=== PATIENT | male | born 1950 | race Caucasian/White ===

== ENCOUNTER 2016-07-22 08:33 | Inpatient (IN) | payer OTHER ==
[2016-07-20 18:26] LABS: BASOPHILS 0.1 %; BASOPHILS ABSOLUTE 0.01 10/3/uL (0.0-0.16); EOSINOPHILS 0.4 %; EOSINOPHILS ABSOLUTE 0.03 10/3/uL (0.0-0.53); HEMATOCRIT 34.4 % (40.0-51.0); HEMOGLOBIN 11.3 g/dL (13.6-17.8); IMMATURE GRANULOCYTES 0.3 %; IMMATURE GRANULOCYTES ABSOLUTE 0.02 10/3/uL (0.0-0.11); LYMPHOCYTES 10.5 %; MANUAL DIFF NO %; MEAN CORPUS HGB CONC 32.8 g/dL (32.0-36.0); MEAN CORPUSCULAR HEMOGLOB 30.2 pg (26.0-34.0); MEAN PLATELET VOLUME 8.8 fL (9.2-13.0); MONOCYTES 11.4 %; MONOCYTES ABSOLUTE 0.87 10/3/uL (0.21-1.20); NEUTROPHILS 77.3 %; NEUTROPHILS ABSOLUTE 5.92 10/3/uL (2.02-8.40); PLATELET COUNT 436 10/3/uL (150-400); RED CELL COUNT 3.74 10/6/uL (4.7-6.1); WHITE BLOOD CELLS 7.7 10/3/uL (4.5-10.5)
[2016-07-20 18:35] LABS: BUN (BLOOD UREA NITROGEN) 15 MG/DL (6-23); CALCIUM, SERUM 9.5 MG/DL (8.5-10.4); CHLORIDE, SERUM 100 MMOL/L (96-112); CO2 (CARBON DIOXIDE) 29 MMOL/L (24-34); CREATININE 0.69 MG/DL (0.70-1.30); GFR AFRICAN AMERICAN 113 ML/MIN (>=60); GFR NON AFRICAN AMERICAN 98 ML/MIN (>=60); GLUCOSE, SERUM 100 MG/DL (60-99); POTASSIUM, SERUM 3.3 MMOL/L (3.5-5.3); SODIUM, SERUM 139 MMOL/L (135-148)
--- NOTE | ~2016-07-22 | HP ---
History And Physical [address] [place]. [address] NAME: TONNY SAGASTUME : 46 STATUS : ADM Zev PAT#: [id number] AGE: 66 ADM/REG DATE : 07/22/16 MR#: [id number] REPORT SERV DATE: 07/23/16 DICTATED BY: CHRISTIANNE AGUILAR II DATE: 07/22/16 REPORT STATUS : Draft TRANSCRIBED BY: MODL DATE: 07/22/16 DATE OF ADMISSION: 07/22/2016 PRIMARY ONCOLOGIST: Quan Ariza M.D. ENT: Marcos Garza MD CHIEF COMPLAINT: Dysphagia, weight loss with hypopharyngeal squamous cell carcinoma. 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 Garza. Given the patient has been having more difficulty with weight loss, dysphagia and aspiration, Dr. Garza elected to admit for observation and supportive care postoperatively. Currently, the patient has some pain in his throat postoperatively, but denies any other significant symptoms such as shortness of breath, chest pain, nausea, vomiting, diarrhea. Denies any fevers or chills. He notes over the last week or two, his dysphagia progressing into difficulty with tolerating liquids due to occasional aspiration and choking. He notes he feels like he has a good appetite and wants to try to eat. REVIEW OF SYSTEMS: 10-point review of systems otherwise negative except for HPI. PAST MEDICAL HISTORY: 1. 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 2. Dysphagia and possible aspiration. 3. Malnutrition secondary to above. 4. Hypertension. 5. Surgical history of prior biopsies. 6. Appendectomy. FAMILY HISTORY: Denies any history of prior malignancy. SOCIAL HISTORY: The patient lives alone by himself and previously worked as an HVAC contractor. He previously smoked about a half pack a day, but recently quit. He has a history of heavy alcohol use, but denies any current alcohol or drug use. ALLERGIES: SULFA. HOME MEDICATIONS: Trazodone, Flomax, [place], baclofen, Ziac. PHYSICAL EXAMINATION: VITAL SIGNS: Respirations 18, blood pressure 146/85, temperature 98.6, heart rate 79, O2 saturation 98% on room air. GENERAL: The patient is alert and oriented x3, in no acute distress. History And Physical [address] [address] NAME: TONNY SAGASTUME : 46 STATUS : ADM Zev PAT#: [id number] AGE: 66 ADM/REG DATE : 07/22/16 MR#: [id number] REPORT SERV DATE: 07/23/16 DICTATED BY: CHRISTIANNE AGUILAR II DATE: 07/22/16 REPORT STATUS : Draft TRANSCRIBED BY: MESERET DATE: 07/22/16 NECK: Supple. Nontender. No lymphadenopathy or thyromegaly. HEENT: Moist mucous membranes. Foul necrotic odor to breath. Pupils equal, round, reactive to light. Conjunctivae clear. RESPIRATORY: Lungs clear to auscultation bilaterally. No wheezes, rhonchi, or rales. Nonlabored breathing. CARDIOVASCULAR: Regular rate and rhythm. No murmurs, rubs, or gallops. ABDOMEN: Soft, nontender, nondistended. Normoactive bowel sounds. EXTREMITIES: No cyanosis, clubbing, or edema. SKIN: No lesions, rashes, or wounds. NEURO: No focal deficits. LABORATORY DATA: Pending. ASSESSMENT AND PLAN: The patient is a 66-year-old male with, 1. Stage IV hypopharyngeal squamous cell carcinoma with previous good response to chemo and radiation, now with recent biopsy. We will defer to Oncology and ENT. 2. Dysphagia and concern for aspiration secondary to above. We will have nursing do bedside swallow and if passes well, we will try a full liquid diet before advancing. 3. Malnutrition. Per above and encourage p.o. afterwards. 4. Hypertension. Home medications. 5. The patient is full code. PINO/MESERET Christianne Aguilar II, MD / [id number] CC: MD Sharon Garcia M.D.
--- NOTE | ~2016-07-22 | DS ---
Discharge Summary [address] [place]. [address] NAME: TONNY SAGASTUME : 46 STATUS : DIS IN PAT#: [id number] AGE: 66 ADM/REG DATE : 07/22/16 MR#: [id number] REPORT SERV DATE: 07/24/16 DICTATED BY: CHRISTIANNE AGUILAR II DATE: 07/24/16 REPORT STATUS : Draft TRANSCRIBED BY: MESERET DATE: 07/24/16 ADMISSION DATE: 07/22/2016 DISCHARGE DATE: 07/24/2016 DISCHARGE DIAGNOSES: 1. Stage IV hypopharyngeal squamous cell carcinoma. 2. Dysphagia and aspiration secondary to above. 3. Malnutrition. 4. Hypertension. CONSULTS: Dr. Marcos Garza with ENT. PROCEDURES: Status post biopsy of hypopharyngeal lesion. BRIEF HISTORY OF PRESENT ILLNESS: The patient is a 66-year-old male with the above history who presented to [facility] due to elective biopsy and admitted due to concern for aspiration and malnutrition for concern for consideration of PEG. For detailed history and physical examination, please see my note from 07/22/2016. HOSPITAL COURSE: After admission, the patient was clearly aspirating and the PEG tube was placed through IR. Nutrition was consulted and the patient was arranged with PEG tube feeds. His initial biopsy results have come back negative though final path pending. Overall, the patient is stable post PEG tube placement and was discharged in stable condition. DISCHARGE MEDICATIONS: 1. Hytrin 1 mg per PEG daily. 2. Bisoprolol and hydrochlorothiazide 1 tab p.o. daily. 3. Hycet 7.5/325 mg per 15 mL solution 15 mL per PEG q.6 hours p.r.n. 4. Baclofen 10 mg per PEG t.i.d. 5. Trazodone 50 mg per PEG q.h.s. DISCHARGE INSTRUCTIONS: The patient will follow up with Dr. Garza and Oncology as scheduled. PINO/MESERET Christianne Aguilar II, MD / [id number] CC: Marcos Garza MD Discharge Summary [address] [address] NAME: TONNY SAGASTUME : 46 STATUS : DIS IN PAT#: [id number] AGE: 66 ADM/REG DATE : 07/22/16 MR#: [id number] REPORT SERV DATE: 07/24/16 DICTATED BY: CHRISTIANNE AGUILAR II DATE: 07/24/16 REPORT STATUS : Draft TRANSCRIBED BY: MODL DATE: 07/24/16 Sharon Kumar M.D.
--- NOTE | ~2016-07-22 | OP ---
Record Of Operation [facility] [address] [place]. [address] NAME: TONNY SAGASTUME : 46 STATUS : ADM IN PAT#: [id number] AGE: 66 ADM/REG DATE : 07/22/16 MR#: [id number] REPORT SERV DATE: 07/22/16 DICTATED BY: GAMAL RODRIGUEZ DATE: 07/22/16 REPORT STATUS : Draft TRANSCRIBED BY: MESERET DATE: 07/22/16 DATE OF PROCEDURE: 07/22/2016 SERVICE: Otolaryngology PREOPERATIVE DIAGNOSIS: Right hypopharyngeal squamous cell carcinoma. POSTOPERATIVE DIAGNOSIS: Right hypopharyngeal squamous cell carcinoma. PROCEDURE: Microsuspension laryngoscopy with biopsy. ANESTHESIA: General endotracheal anesthesia. ESTIMATED BLOOD LOSS: Minimal. COMPLICATIONS: None. SPECIMENS: Deep hypopharyngeal biopsies on the right side. 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 Postoperative PET showed increase in size of the necrotic area and also FDG activity in the area of the primary site. All the positive neck sites had resolved. The patient was struggling with pain and difficulty swallowing on physical exam in the office with a flexible scope. He had large areas of necrosis in the piriform sinus concerning for persistent disease. I recommended today surgery as a way to further evaluate that. STATEMENT OF OPERATION: The patient was brought to the operating room in supine position and transferred over to the operating room table. All pressure points were padded and general endotracheal anesthesia was established. The patient's neck was placed in slight extension with a shoulder roll. A tooth guard was placed in the upper teeth. A Dedo laryngoscope was inserted into the mouth. At first, I had a good view of the vallecula. I did not see any disease there. There was a very foul smell coming from the area of necrosis. I suctioned out mucinous necrotic debris from the right piriform sinus. There was exposed thyroid laminal cartilage present. I did some deep mucosal biopsies and sent for frozen section. Initial results came back as negative for invasive carcinoma. I did send more for permanent. The disease encompassed the entire piriform sinus up to the arytenoid on the right came up the lateral pharyngeal wall as well. There was very little bleeding. He tolerated the procedure well without complications. ASSESSMENT: Status post chemo and radiation for stage IV squamous cell carcinoma of the right hypopharynx. The patient is failing to thrive at home. I have asked his oncologist to admit him following the surgery for nutrition, possibly PEG tube. I have also discussed with the patient that if his disease progressed that he may need alternative airway in the near future. We discussed possible trach soon, however, he is not ready to commit to that yet. Also, I am going to discuss this case with colleagues and potentially tumor board to Record Of [address] [address] NAME: TONNY SAGASTUME : 46 STATUS : ADM IN [facility] [id number] AGE: 66 ADM/REG DATE : 07/22/16 MR#: [id number] REPORT SERV DATE: 07/22/16 DICTATED BY: GAMAL RODRIGUEZ DATE: 07/22/16 REPORT STATUS : Draft TRANSCRIBED BY: MODL DATE: 07/22/16 see if a laryngectomy may be feasible. His PET scan did not show any distant disease, only local disease. Even if we do not get a positive biopsy on this, this will go around. His larynx does not seem to be functional and potentially toxic and he may benefit from a laryngectomy just to remove the necrotic tissue. I discussed this with his appointed friend and will follow him while he is in the hospital. PS/MODL Gamal Rodriguez MD / [id number] CC: MD Sharon Garcia M.D.
[~2016-07-22 08:33] MED LIST: ADVIL PO; FLOMAX4 PO; LIOR10 PEG; NORCO1 TA1 PEG; SIMVASTATIN; TRAZ50 PEG; ZIAC PO; ZIAC10 PO; ZIAC2 PEG
[2016-07-22 17:23] LABS: BASOPHILS 0 %; EOSINOPHILS 0 %; HEMATOCRIT 33.2 % (40.0-51.0); HEMOGLOBIN 10.9 g/dL (13.6-17.8); IMMATURE GRANULOCYTES 0.2 %; IMMATURE GRANULOCYTES ABSOLUTE 0.01 10/3/uL (0.0-0.11); LYMPHOCYTES 5.3 %; LYMPHOCYTES ABSOLUTE 0.29 10/3/uL (0.67-4.30); MEAN CORPUS HGB CONC 32.8 g/dL (32.0-36.0); MEAN CORPUSCULAR HEMOGLOB 29.9 pg (26.0-34.0); MEAN PLATELET VOLUME 8.3 fL (9.2-13.0); MONOCYTES 1.3 %; MONOCYTES ABSOLUTE 0.07 10/3/uL (0.21-1.20); NEUTROPHILS 93.2 %; NEUTROPHILS ABSOLUTE 5.14 10/3/uL (2.02-8.40); PLATELET COUNT 381 10/3/uL (150-400); RBC DISTRIBUTION WIDTH 12.9 % (12.0-16.0); RED CELL COUNT 3.65 10/6/uL (4.7-6.1); WHITE BLOOD CELLS 5.5 10/3/uL (4.5-10.5)
[2016-07-22 17:25] LABS: MANUAL DIFF NO %
[2016-07-22 17:39] LABS: A/G RATIO 0.7 (0.7-1.9); ALBUMIN 2.8 G/DL (3.5-5.0); ALKALINE PHOSPHATASE 68 U/L (45-117); BUN (BLOOD UREA NITROGEN) 18 MG/DL (6-23); CALCIUM, SERUM 9.8 MG/DL (8.5-10.4); CHLORIDE, SERUM 105 MMOL/L (96-112); CO2 (CARBON DIOXIDE) 31 MMOL/L (24-34); CREATININE 0.65 MG/DL (0.70-1.30); GFR AFRICAN AMERICAN 116 ML/MIN (>=60); GFR NON AFRICAN AMERICAN 100 ML/MIN (>=60); GLOBULIN 4.1 G/DL (2.5-4.1); PREALBUMIN 10.4 MG/DL (17.0-43.0); SGOT(AST) 17 U/L (5-40); SGPT(ALT) 10 U/L (5-65); SODIUM, SERUM 143 MMOL/L (135-148); TOTAL BILIRUBIN 0.3 MG/DL (0-1.2); TOTAL PROTEIN 6.9 G/DL (6.0-8.5)
[2016-07-22 17:41] LABS: GLUCOSE, SERUM 129 MG/DL (60-99); POTASSIUM, SERUM 4.1 MMOL/L (3.5-5.3)
[2016-07-24] MEDS ORDERED: HYCET 7.5 MG-3473 ML PEG (12:41)
[2016-07-24] MEDS ORDERED: HYT1 PEG (12:43)
[2016-09-04] MEDS ORDERED: NORCO1 TAB PO (00:25)
[2016-09-04] MEDS ORDERED: ATV.5 PEG (00:27)
[2016-12-08] MEDS ORDERED: ENDOCET1 TA3 PEG (13:46)
== END 2016-07-24 17:37 | disposition home or self-care (01) | DRG 147 ==
LOC: SDC 08:33 → 4EA 15:30
PROVIDERS: Otolaryngology
PROC: 0CBM8ZX Excision of Pharynx, Via Natural or Artificial Opening Endoscopic, Diagnostic (ICD-10-PCS; principal; 2016-07-22 09:45)
PROC: 0DH63UZ Insertion of Feeding Device into Stomach, Percutaneous Approach (ICD-10-PCS; 2016-07-23)
DX: C13.9 Malignant neoplasm of hypopharynx, unspecified (principal); E44.0 Moderate protein-calorie malnutrition; R13.10 Dysphagia, unspecified; T17.918A Gastric contents in respiratory tract, part unspecified causing other injury, initial encounter; I10 Essential (primary) hypertension; K21.9 Gastro-esophageal reflux disease without esophagitis; E78.00 Pure hypercholesterolemia, unspecified; N40.0 Benign prostatic hyperplasia without lower urinary tract symptoms; F32.9 Major depressive disorder, single episode, unspecified; Z68.20 Body mass index [BMI] 20.0-20.9, adult
CPT/HCPCS: 49440; 80048; 80053; 84134; 85025; 88305; 88331; 93005; A9270-GY; C1769; C9113; J0330; J0690; J2250; J2370; J3010; Q9967